=== PATIENT | female | born 1975 | race Hispanic/Latino ===

== ENCOUNTER 2021-10-30 17:31 | Emergency (ER) | payer SELFPAY ==
[2021-10-30 17:42] VITALS: BP 150/69; PULSE 82; RESP 20; TEMP 36.9; O2SAT 100
--- NOTE | 2021-10-30 20:52 | ED.GENADULT ---
HPI - General Adult General Chief complaint: Skin/Abscess/Foreign Body <MARTIN Serna Last Filed: 10/31/21 04:51> Stated complaint: wound, tender, redness, itching <MARTIN Serna Last Filed: 10/31/21 04:51> Time Seen by Provider: 10/30/21 20:17 <MARTIN Serna Last Filed: 10/31/21 04:51> Source: patient <MARTIN Serna Last Filed: 10/31/21 04:51> Mode of arrival: ambulatory <MARTIN Serna Last Filed: 10/31/21 04:51> Limitations: language barrier <MARTIN Serna Last Filed: 10/31/21 04:51> History of Present Illness HPI narrative: Patient is a 46-year-old female who presents the ED with report of a pruritic rash on her trunk and upper extremities. Patient is primarily speaking. Daughter at bedside assisted in providing translation. I did offer to bring in [facility], but patient refused. Patient reports she noticed a bump on her left lower back yesterday morning. When she touched this, the lesion 'popped.' Patient then reports she was out in the sun yesterday at her grandson's baseball game and noticed a diffuse red pruritic rash on her chest and upper extremities after being out in the sun. Patient reports rash is very itchy. She has taken Benadryl twice without much relief. She denies any fever, chills, nausea, vomiting, itchy throat, mucosal swelling, difficulty breathing, difficulty swallowing, difficulty speaking. No new laundry detergent, soaps, lotions. <MARTIN Serna Last Filed: 10/31/21 04:51> Related Data Allergies/adverse reactions: Allergies Allergy/AdvReac Type Severity Reaction Status Date / Time Penicillins Allergy Anaphylaxis Verified 10/30/21 21:18 <MARTIN Serna Last Filed: 10/31/21 04:51> Review of Systems Review of Systems: CONSTITUTIONAL: Denies fever, chills. ENT: Denies throat swelling, throat itching, dysphagia. CARDIOVASCULAR: Denies chest pain. RESPIRATORY: Denies cough or dyspnea. GASTROINTESTINAL: Denies abdominal pain, nausea, vomiting. SKIN: Reports pruritic rash on trunk/upper extremities, scab to L lower back. NEUROLOGIC: Denies numbness, tingling, or weakness. <Lilia Begum PA-C - Last Filed: 10/31/21 04:51> All systems reviewed & are unremarkable except as noted in HPI and below <Lilia Begum PA-C - Last Filed: 10/31/21 04:51> PMFSH Past Medical History Medical History: Medical History Depression Diabetes mellitus Hyperlipidemia Hypertension <Lilia Begum PA-C - Last Filed: 10/31/21 04:51> Surgical History Surgical History: Surgical History (Updated 10/30/21 @ 20:57 by Lilia Begum PA-C) No pertinent past surgical history <Lilia Begum PA-C - Last Filed: 10/31/21 04:51> Social History Social History: Social History (Updated 10/30/21 @ 20:57 by Lilia Begum PA-C) Smoking status: Never smoker <Lilia Begum PA-C - Last Filed: 10/31/21 04:51> Exam Narrative: GENERAL: Well appearing, well-nourished, non-toxic, in no acute distress. HEAD: Normocephalic, atraumatic. THROAT: Pharynx clear, no exudate. MMs moist. NECK: Supple. No adenopathy, no masses. RESPIRATORY: Airway patent, respirations nonlabored. Clear to auscultation bilaterally, no rales, rhonchi, wheezing. CARDIOVASCULAR: Regular rate and rhythm without murmurs, rubs, or gallops. Radial pulses 2+ and equal bilaterally. MUSCULOSKELETAL: Moves all extremities. Strength/ROM intact without gross deformities. SKIN: Warm, dry, normal color. Diffuse, mildly erythemic, papular rash involving chest and upper extremities. No significant excoriation. No appearance of infected papules. Flat dime-sized circular scab in left lower back where patient reported lesion 'popped'. Appearance is consistent with scabbed blister. No surrounding warmth or erythema. Minimal underlying induration. No fluctuance appreciated.
[2021-10-30] MEDS: FAMOTIDINE 20 MG TABLET PO (21:21)
[2021-10-30] MEDS: diphenhydrAMINE HCl CAP 25 MG CAPSULE 50 MG PO (21:21)
[2021-10-30 21:39] VITALS: BP 148/90; PULSE 86; RESP 16; TEMP 36.6; O2SAT 97
== END 2021-10-30 21:40 | disposition home or self-care (01) ==
PROVIDERS: Emergency Provider General Practice
DX: R21 Rash and other nonspecific skin eruption (principal); E78.5 Hyperlipidemia, unspecified; I10 Essential (primary) hypertension
CPT/HCPCS: 99283; A9270

== ENCOUNTER 2022-04-06 13:29 | Emergency (ER) | payer SELFPAY ==
--- NOTE | ~2022-04-06 | XR_ITS ---
EXAMINATION: XR chest 2V DATE: 04/06/2022 14:38 INDICATION: Productive cough and right rib pain TECHNIQUE: PA and lateral views of the chest were obtained. COMPARISON: None FINDINGS: No focal airspace opacities, pulmonary edema, pleural effusion or pneumothorax. The cardiomediastinal silhouette is normal. 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 No evident acute osseous abnor mality. IMPRESSION: 1. No acute cardiopulmonary disease. Reviewed, dictated and finalized at location A.
[2022-04-06 13:41] VITALS: BP 149/93; PULSE 89; RESP 18; TEMP 36.4; O2SAT 99
--- NOTE | 2022-04-06 14:07 | ED.EYEPROB ---
HPI - Eye Problem General Chief complaint: Eye Problems Stated complaint: eye infection Time Seen by Provider: 04/06/22 13:51 History of Present Illness HPI Narrative: Patient is a 46-year-old healthy female here for evaluation of bilateral eye irritation. Patient states that yesterday she woke up and noticed that her left eye had crusty discharge and was itchy. Today she woke up and her right eye was crusty and itchy, and her left eye became red. Patient denies any eye pain or changes to her vision, she does not wear corrective lenses or contact lenses. Additionally, patient has been experiencing a dry cough, sore throat, and generalized fatigue over the past 3 days. Has not taken her temperature. Denies any chest pain, leg swelling, nausea or vomiting, abdominal pain. Related Data Allergies Allergy/AdvReac Type Severity Reaction Status Date / Time Penicillins Allergy Anaphylaxis Verified 04/06/22 13:57 Review of Systems Review of Systems: Gen.: Denies fevers or chills Eyes: Reports bilateral eye discharge and redness. Denies visual change or eye pain. ENT: Reports congestion Respiratory: Reports cough. Denies shortness of breath CV: Denies chest pain or palpitations GI: Denies abdominal pain nausea, emesis or diarrhea denies burning, urgency, frequency or hematuria Musculoskeletal: Denies back pain or muscle pain Neuro: Denies numbness, tingling, weakness or focal weakness Skin: Denies rash Except as documented, all other systems reviewed and negative PMFSH Past Medical History Medical History Depression Diabetes mellitus Hyperlipidemia Hypertension Surgical History Surgical History No pertinent past surgical history Social History Social History (Updated 10/30/21 @ 20:57 by Lilia Brothers PA-C) Smoking status: Never smoker Exam Narrative: APPEARANCE: Well appearing, no pain in distress, well-nourished. Head: Normocephalic and atraumatic. EYES: Fluorescein exam reveals no discrete area of uptake. Left eye is diffusely injected. Right eye with small amount of yellow-green discharge. NOSE: No nasal drainage EARS: External ear normal in appearance THROAT: mild tonsillar swelling bilaterally. No uvular deviation. NECK: Supple. No adenopathy, no masses. RESPIRATORY: Coughing throughout exam. Airway patent, respirations nonlabored. Clear to auscultation bilaterally, no rales, rhonchi, wheezing. CARDIOVASCULAR: Regular rate and rhythm without murmurs, rubs, or gallops. ABDOMINAL: Normoactive bowel sounds. Soft, nontender, nondistended. No rebound tenderness or guarding. MUSCULOSKELETAL: Extremities are warm and well-perfused. Moves all extremities well. No edema. NEURO: Normal speech. No focal neurologic deficits. SKIN: Skin is warm and dry. No rashes. PSYCHIATRIC: Normal affect/mood. Course Vital Signs Vital signs: Vital Signs Temperature 97.6 F 04/06/22 13:41 Pulse Rate 89 04/06/22 13:41 Respiratory Rate 18 04/06/22 13:41 Blood Pressure 149/93 H 04/06/22 13:41 Pulse Oximetry 99 04/06/22 13:41 Oxygen Delivery Room Air 04/06/22 13:41 Temperature 97.6 F 04/06/22 13:41 Pulse Rate 74 04/06/22 16:19 Respiratory Rate 18 04/06/22 16:19 Blood Pressure 126/87 04/06/22 16:19 Pulse Oximetry 97 04/06/22 16:19 Oxygen Delivery Room Air 04/06/22 13:41 MDM - Eye Problem MDM Narrative Medical decision making narrative: 46-year-old female here for evaluation of bilateral eye discharge, redness and itchiness in addition to some other upper respiratory infectious type symptoms over the past 3 days. Her vital signs are normal. She has left conjunctival injection and small amount of thick white discharge on the right. history and physical exam consistent with bacterial conjunctivitis. Fluorescein exam unrevealing, negative yraed sign.
[2022-04-06] MEDS: BENZONATATE 100 MG CAPSULE 200 MG PO (14:18)
[2022-04-06 14:58] LABS: Influenza A QL RT-PCR Negative (Negative); Influenza B QL RT-PCR Negative (Negative); SARS-CoV-2 RNA PCR Negative
[2022-04-06 16:19] VITALS: BP 126/87; PULSE 74; RESP 18; O2SAT 97
== END 2022-04-06 16:21 | disposition home or self-care (01) ==
LOC: ANHED 15:07
PROVIDERS: Physician Assistant; Emergency Provider Emergency Medicine
DX: H10.89 Other conjunctivitis (principal); R05.9 Cough, unspecified; J02.9 Acute pharyngitis, unspecified; Z20.822 Contact with and (suspected) exposure to COVID-19; E11.9 Type 2 diabetes mellitus without complications; E78.5 Hyperlipidemia, unspecified; I10 Essential (primary) hypertension
CPT/HCPCS: 71046; 87081; 87502; 87880; 99283; A9270; C9803; U0003; U0005